=== PATIENT | female | born 1980 | race Caucasian/White ===

== ENCOUNTER 2017-09-06 10:50 | Outpatient (CLI) | payer MEDICAID | END 2017-09-06 10:51 | disposition home or self-care (01) | LOC: BICMAMMO 10:50 | PROVIDERS: ATTEND Nurse Practitioner Women's Health | DX: Z12.31 Encounter for screening mammogram for malignant neoplasm of breast (principal); N64.4 Mastodynia | CPT/HCPCS: 77067 ==

== ENCOUNTER 2018-12-27 13:24 | Outpatient (CLI) | payer OTHER ==
--- NOTE | 2018-12-27 14:32 | ULT ---
US OB Complete STANDARD History: 009.92 supervision of high-risk in second trimester Comparison: None. Findings: Real-time grayscale and color evaluation of the gravid uterus was performed. Single viable intrauterine with average ultrasound age 20 week 4 day with estimated date of delivery May 12, 2019. Estimated weight is 13 ounces, 45th percentile Biometry: Biparietal diameter: 4.86 cm, 20 week 5 day Head circumference: 17.81 cm, 20 week 2 day Abdominal circumference: 15.46 cm, 20 week 5 day Femur length: 3.37 cm, 20 week 4 day Heart rate is documented at 152 bpm. Anatomy: The head, cerebellum, cisterna magna, lateral ventricles, four-chamber heart, stomach, kidne ys, cord insertion, bladder, spine, lips/nose, upper extremities, lower extremities, three-vessel cord are all normal. Placenta is posterior and the presentation is variable. Placenta does not appear to cover the interna l os. Amniotic fluid index: 13.4 cm Impression: Single viable intrauterine . Normal anatomy exam.
== END 2018-12-27 13:25 | disposition home or self-care (01) ==
LOC: BICULT 13:24
PROVIDERS: ATTEND Family Medicine
DX: O09.92 Supervision of high risk pregnancy, unspecified, second trimester (principal)
CPT/HCPCS: 76805

== ENCOUNTER 2019-05-06 09:25 | Inpatient (IN) | payer OTHER ==
[~2019-05-06 09:25] MED LIST: Bupivacaine 0.25% 10 ML VIAL ONE; ePHEDrine/0.9% NaCl/PF SYRINGE 50 mg/10 ml ONE
[2019-05-06 09:57] VITALS: BMI 33.0
[2019-05-06] MEDS ORDERED: Butorphanol Tartrate 1 MG/ML VIAL SLOW IVP PRN (10:15)
[2019-05-06] MEDS ORDERED: Methylergonovine 0.2 MG/ML VIAL IM PRN (10:15)
[2019-05-06] MEDS ORDERED: Diphenoxylate HCl/Atropine Tablet PO PRN (10:15)
[2019-05-06] MEDS ORDERED: hydrALAZINE 20 MG/ML VIAL SLOW IVP PRN ×2 (10:15→21:46)
[2019-05-06] MEDS ORDERED: Lidocaine 1% (PF) 30 ML VIAL SC PRN (10:15)
[2019-05-06] MEDS ORDERED: Ondansetron PF 4 MG/2 ML Vial IVP PRN ×2 (10:15→21:46)
[2019-05-06] MEDS ORDERED: Misoprostol 200 MCG TAB PR PRN (10:15)
[2019-05-06] MEDS ORDERED: Promethazine HCl 25 MG/ML VIAL IM PRN ×2 (10:15→21:46)
[2019-05-06] MEDS ORDERED: Carboprost 250 MCG/ML AMP IM PRN (10:15)
[2019-05-06] MEDS ORDERED: NS w/ Oxytocin 10 units 500 ML IV SCH (10:15)
[2019-05-06] MEDS ORDERED: Ibuprofen 800 MG TAB PO PRN (10:15)
[2019-05-06] MEDS ORDERED: NS / Oxytocin 40 units/1000ml 1,000 ML IV PRN (10:15)
[2019-05-06] MEDS ORDERED: HYDROcodone/Acetaminophen 5/325 mg Tablet PO PRN ×2 (10:15→21:46)
[2019-05-06 10:36] LABS: Amnisure Test RUPTURE DETECTED (No Rupture)
[2019-05-06 10:37] LABS: Amnisure Internal Control QC ACCEPTABLE (ACCEPTABLE)
[2019-05-06] MEDS: Lactated Ringer's 1,000 ML IV SCH (11:22)
[2019-05-06 11:43] LABS: Hemoglobin 12.3 g/dL (12.0-16.0); Mean Corpuscular HGB CONC 34.7 g/dL (32.0-36.0); Mean Corpuscular Hemoglobin 32.2 pg (27.0-31.0); Mean Corpuscular Volume 92.6 fL (78.0-98.0); Mean Platelet Volume 8.9 fL (7.4-10.4); Platelet Count 225 thou/uL (130-400); RBC Distribution Width 11.6 % (11.5-14.5); Red Blood Cell (RBC) Count 3.82 mill/uL (4.20-5.40)
[2019-05-06] MEDS ORDERED: Fentanyl 4 mcg/Bup 0.1% Cadd 100 ML ONE (12:04)
[2019-05-06 12:20] LABS: Syphilis Antibody Nonreactive (Nonreactive); Syphilis Antibody Index 0.05 S/CO (<1.00 Non-Reactive)
[2019-05-06 12:21] LABS: HBSAg Index 0.17 S/CO (0-0.99); Hep B Surf Ag Non-Reactive S/CO (NonReactive)
[2019-05-06] MEDS ORDERED: Lanolin Ointment 7 GM TUBE TOP PRN (21:46)
[2019-05-06] MEDS ORDERED: Milk Of Magnesia 30 ML UDCUP PO PRN (21:46)
[2019-05-06] MEDS ORDERED: Bisacodyl 10 MG SUPP PR PRN (21:46)
[2019-05-06] MEDS ORDERED: Benzocaine-Menthol 82.5 ML CAN TOP PRN (21:46)
[2019-05-06] MEDS ORDERED: diphenhydrAMINE 25 MG CAP PO PRN (21:46)
[2019-05-06] MEDS ORDERED: NS / Oxytocin 40 units/1000ml 1,000 ML IV SCH (21:46)
[2019-05-06] MEDS ORDERED: Docusate Calcium (SURFAK) 240 MG CAP PO SCH (22:00)
[2019-05-06] MEDS: HYDROcodone/Acetaminophen 5/325 mg Tablet PO PRN (23:32)
[2019-05-07] MEDS: Lactated Ringer's 1,000 ML IV SCH (01:17)
[2019-05-07] MEDS: HYDROcodone/Acetaminophen 5/325 mg Tablet PO PRN ×4 (04:21→18:49)
[2019-05-07 05:48] LABS: Mean Corpuscular HGB CONC 33.4 g/dL (32.0-36.0); Mean Corpuscular Hemoglobin 31.2 pg (27.0-31.0); Mean Corpuscular Volume 93.6 fL (78.0-98.0); Mean Platelet Volume 9.1 fL (7.4-10.4); Platelet Count 191 thou/uL (130-400); RBC Distribution Width 11.4 % (11.5-14.5); Red Blood Cell (RBC) Count 3.51 mill/uL (4.20-5.40); White Blood Cell (WBC) Count 11.7 thou/uL (4.8-10.8)
[2019-05-07] MEDS: Ibuprofen 800 MG TAB PO SCH ×2 (06:04→14:32)
[2019-05-07] MEDS: Ferrous Sulfate 325 MG TAB PO SCH ×2 (08:38→15:20)
[2019-05-07] MEDS ORDERED: Docusate Calcium (SURFAK) 240 MG CAP PO SCH (09:00)
[2019-05-07] MEDS ORDERED: Prenatal Vitamin 1 TAB PO SCH (09:00)
[2019-05-07] MEDS ORDERED: Adacel (T-DAP) 0.5 ML SYRINGE IM ONE (09:00)
[2019-05-07 17:43] VITALS: BP 104/61; TEMP 97.9
== END 2019-05-07 20:15 | disposition home or self-care (01) | DRG 807 ==
LOC: L&D/OP 09:25 → SJJU 13:17 → L&D 13:32 → 3SW 22:43
PROVIDERS: ADMIT Family Medicine; ATTEND Family Medicine
PROC: 10E0XZZ Delivery of Products of Conception, External Approach (ICD-10-PCS; principal; 2019-05-06)
PROC: 0HQ9XZZ Repair Perineum Skin, External Approach (ICD-10-PCS; 2019-05-06)
DX: O70.0 First degree perineal laceration during delivery (principal); Z37.0 Single live birth; Z3A.39 39 weeks gestation of pregnancy
CPT/HCPCS: 36415; 51702; 84112; 85027; 86780; 86850; 86900; 86901; 87340; 99285; J2001; J2590; S0020

== ENCOUNTER 2021-11-02 02:14 | Emergency (ER) | payer OTHER, SELFPAY | END 2021-11-02 02:34 | disposition left against medical advice (07) | LOC: ERS 02:14 | DX: Z53.21 Procedure and treatment not carried out due to patient leaving prior to being seen by health care provider (principal) ==